=== PATIENT | female | born 1975 | race Asian ===

== ENCOUNTER 2016-05-23 01:27 | Emergency (ER) | payer OTHER ==
[2016-05-23] MEDS ORDERED: Ondansetron INJ* 2 MG/ML VIAL IV ONE (01:55)
[2016-05-23] MEDS ORDERED: NS 0.9% 1000 ML* 1,000 ML IV ONE (01:55)
--- NOTE | 2016-05-23 02:32 | ED ---
I, Oh,Jarred, scribed for Gene De MD on 05/23/16 at 0158 . Abdominal Pain/Female - HPI Summary HPI Summary: This 40 y/o female presents to ED for acute intermittent abd pain since last evening after dinner. She consumed rice, "some side dishes", and chocolate cake for dinner around 1900 PM, and started experiencing diffuse abd pain. Abd pain subsided about 2 hours after the onset, but returned an hour ago with episodes of n/v. at bedside reports 10x episodes of n/v. 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 - present at bedside Onset/Duration: Sudden Onset Timing: Intermittent Episode Lasting Pain Intensity: 5 Pain Scale Used: 0-10 Numeric Location: Diffuse Radiates: No Character: Dull Aggravating Factor(s): Food Alleviating Factor(s): Nothing Associated Signs and Symptoms: Positive: Nausea, Vomiting Allergies/Adverse Reactions: Allergies Allergy/AdvReac Type Severity Reaction Status Date / Time No Known Allergies Allergy Verified 05/23/16 01:31 PMH/Surg Hx/FS Hx/Imm Hx Infectious Disease History: Denies: Traveled Outside the [place] in Last 30 Days - Family History Known Family History: Negative: Other - breast CA - Social History Alcohol Use: None Hx Substance Use: No Substance Use Type: Reports: None Hx Tobacco Use: No Smoking Status (MU): Never Smoked Tobacco Review of Systems Negative: Fever Positive: Abdominal Pain - diffuse, Vomiting, Nausea All Other Systems Reviewed And Are Negative: Yes Physical Exam Triage Information Reviewed: Yes Vital Signs On Initial Exam: Initial Vitals Temp Pulse Resp BP Pulse Ox 97.5 F 101 20 113/67 100 05/23/16 01:31 05/23/16 01:31 05/23/16 01:31 05/23/16 01:31 05/23/16 01:31 Vital Signs Reviewed: Yes Appearance: Positive: Well-Appearing, No Pain Distress Skin: Positive: Warm Head/Face: Positive: Normal Head/Face Inspection Eyes: Positive: THIEN ENT: Positive: Hearing grossly normal Neck: Positive: Supple Respiratory/Lung Sounds: Positive: Clear to Auscultation, Breath Sounds Present Cardiovascular: Positive: RRR Abdomen Description: Positive: Nontender, No Organomegaly, Soft Bowel Sounds: Positive: Present Musculoskeletal: Positive: Strength/ROM Intact Neurological: Positive: Sensory/Motor Intact, Alert, Oriented to Person Place, Time Diagnostics - Vital Signs Vital Signs Temp Pulse Resp BP Pulse Ox 05/23/16 01:31 97.5 F 101 20 113/67 100 - Laboratory Result Diagrams: 05/23/16 03:00 05/23/16 03:00 Lab Statement: Any lab studies that have been ordered have been reviewed, and results considered in the medical decision making process. Re-Evaluation - Re-Evaluation First Eval Change: Improved Abdominal Pain Fem Course/Dx - Diagnoses Provider Diagnoses: Gastroenteritis Discharge - Discharge Plan Condition: Improved Disposition: HOME Patient Education Materials: Gastroenteritis (ED), Acute Nausea and Vomiting ( ED) Referrals: [facility] SANTO Lugo [Primary Care Provider] - 2 Days The documentation as recorded by the Karlo anderson Soohyun accurately reflects the service I personally performed and the decisions made by , Gene De MD.
[2016-05-23] MEDS ORDERED: Ondansetron ODT TAB* 4 MG ONE (03:03)
[2016-05-23] MEDS ORDERED: Ondansetron ODT TAB* 4 MG PO ONE (03:04)
[2016-05-23 03:26] LABS: Hematocrit 40 % (35-47); Hemoglobin 13.2 g/dl (12.0-16.0); Mean Corpuscular HGB Conc 33 g/dl (31-36); Mean Corpuscular Hemoglobin 31 pg (27-31); Mean Corpuscular Volume 92 fL (80-97); Mean Platelet Volume 9 um3 (7.4-10.4); Red Blood Count 4.31 10^6/ul (4.0-5.4); Red Cell Distribution Width 13 % (10.5-15); White Blood Count 16.6 10^3/ul (3.5-10.8)
[2016-05-23 03:29] LABS: ALT 32 U/L (7-52); AST 92 U/L (13-39); Albumin 4.3 g/dL (3.2-5.2); Alkaline Phosphatase 41 U/L (34-104); Anion Gap 8 mmol/L (2-11); BUN/Creatinine Ratio 16.4 (8-20); Blood Urea Nitrogen 11 mg/dL (6-24); C Reactive Protein < 1.00 mg/L (< 5.00); CO2 Carbon Dioxide 24 mmol/L (22-32); Chloride 105 mmol/L (101-111); EGFR African American 125.4 (>60); EGFR Non-African American 97.5 (>60); Globulin 2.9 g/dL (2-4); Glucose 96 mg/dL (70-100); Lipase 86 U/L (11.0-82.0); Magnesium 1.8 mg/dL (1.9-2.7); Potassium 3.4 mmol/L (3.5-5.0); Sodium 137 mmol/L (133-145); Total Protein 7.2 g/dL (6.4-8.9)
[2016-05-23 04:39] VITALS: BP 114/71
== END 2016-05-23 04:38 | disposition home or self-care (01) ==
LOC: ED 01:27
DX: K52.9 Noninfective gastroenteritis and colitis, unspecified (principal)
CPT/HCPCS: 36415; 80053; 83690; 83735; 84702; 85025; 86140; 96360; 96374; 99282